=== PATIENT | male | born 2000 | race African-American/Black ===

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

== ENCOUNTER 2019-03-17 15:57 | Emergency (ER) | payer OTHER ==
[2019-03-17 16:16] VITALS: BMI 39.1
--- NOTE | 2019-03-17 16:22 | PDOC ---
Rapid Medical Evaluation Chief Complaint: Headache Time Seen by Provider: 03/17/19 16:21 Medical Evaluation: Allergies Allergy/AdvReac Type Severity Reaction Status Date / Time No Known Allergies Allergy Verified 11/22/18 02:47 Vital Signs Temp Pulse Resp BP Pulse Ox 98.2 F 74 20 124/67 100 03/17/19 16:12 03/17/19 16:12 03/17/19 16:12 03/17/19 16:12 03/17/19 16:12 03/17/19 16:21 Pt c/o: frontal throbbing pressure to forehead x 5 days, + photosensitivity and dizziness, took motrin with no relief pt on brief exam: vss, perrl, Pt ordered for: head ct, pt to proceed to the ED Discharge Disposition - Diagnosis Headache - Discharge Dispostion Condition at time of disposition: Stable - Referrals Referrals: Karena Gordon MD [Primary Care Provider] - - Patient Instructions - Post Discharge Activity
[2019-03-17] MEDS ORDERED: SODIUM CHLORIDE 1,000 ML IV STA (16:27)
[2019-03-17] MEDS ORDERED: METOCLOPRAMIDE HCL INJECTION 10 MG/2 ML VIAL IVPB ONE (16:27)
[2019-03-17] MEDS ORDERED: ACETAMINOPHEN 1000 MG/100 ML VIAL (NON FORMULARY) IVPB ONE (16:27)
--- NOTE | 2019-03-17 16:34 | PDOC ---
History of Present Illness - General History Source: Patient Exam Limitations: No Limitations <[email or web address] [email or web address] - Last Filed: 03/17/19 18:12> <Kunal Webber - Last Filed: 03/18/19 02:27> - General Chief Complaint: Headache Stated Complaint: HEADACHE Time Seen by Provider: 03/17/19 16:21 Past History - Travel Traveled outside of the country in the last 30 days: No Close contact w/someone who was outside of country & ill: No - Past Medical History COPD: No - Immunization History Immunization Up to Date: Yes - Psycho Social/Smoking Cessation Hx Smoking History: Never smoked Have you smoked in the past 12 months: No Information on smoking cessation initiated: No Hx Alcohol Use: No Drug/Substance Use Hx: No <YoanaJaniceKristen - Last Filed: 03/17/19 18:12> <Kunal Webber - Last Filed: 03/18/19 02:27> - Past Medical History Allergies/Adverse Reactions: Allergies Allergy/AdvReac Type Severity Reaction Status Date / Time No Known Allergies Allergy Verified 11/22/18 02:47 Home Medications: Ambulatory Orders Ibuprofen 600 mg PO Q6H #30 tablet 03/17/19 Review of Systems - Review of Systems Able to Perform ROS?: Yes Comments:: 03/17/19 18:12 CONSTITUTIONAL: Absent: fever, chills, diaphoresis, generalized weakness, malaise, loss of appetite HEENT: Absent: rhinorrhea, nasal congestion, throat pain, throat swelling, difficulty swallowing, mouth swelling, ear pain, eye pain, visual Changes CARDIOVASCULAR: Absent: chest pain, loss of consciousness, palpitations, irregular heart rate, peripheral edema RESPIRATORY: Absent: cough, shortness of breath, dyspnea with exertion, orthopnea, wheezing, stridor, hemoptysis GASTROINTESTINAL: Absent: abdominal pain, abdominal distension, nausea, vomiting, diarrhea, constipation, melena, hematochezia GENITOURINARY: Absent: dysuria, frequency, urgency, hesitancy, hematuria, flank pain, genital pain MUSCULOSKELETAL: Absent: myalgia, arthralgia, joint swelling SKIN: Absent: rash, itching, pallor NEUROLOGIC: Present: Headache Absent:focal weakness or paresthesias, dizziness, unsteady gait, seizure, mental status changes, bladder or bowel incontinence PSYCHIATRIC: Absent: anxiety, depression, suicidal or homicidal ideation, hallucinations. Is the patient limited E[place]an proficient: No <YoanaKristen - Last Filed: 03/17/19 18:12> *Physical Exam - Vital Signs Last Vital Signs Temp Pulse Resp BP Pulse Ox 98.2 F 74 20 124/67 100 03/17/19 16:12 03/17/19 16:12 03/17/19 16:12 03/17/19 16:12 03/17/19 16:12 - Physical Exam 03/17/19 18:12 GENERAL: Well developed, well nourished. Awake and alert. No acute distress. HEENT: Normocephalic, atraumatic. PERRLA, EOMI. No conjunctival pallor. Sclera are non- icteric. Moist mucous membranes. Oropharynx is clear. NECK: Supple. Full ROM. CARDIOVASCULAR: Regular rate and rhythm. No murmurs, rubs, or gallops. Distal pulses are 2+ and symmetric. PULMONARY: No evidence of respiratory distress. Lungs clear to auscultation bilaterally. No wheezing, rales or rhonchi. MUSCULOSKELETAL Normal range of motion at all joints. No bony deformities or tenderness. SKIN: Warm and dry. Normal capillary refill. No rashes. No jaundice. NEUROLOGICAL: Alert, awake, appropriate. Cranial nerves 2-12 intact. No deficits to light touch and temperature in face, upper extremities and lower extremities. No motor deficits in the in face, upper extremities and lower extremities. Normoreflexic in the upper and lower extremities. Normal speech. Toes are down- going bilaterally. Gait is normal without ataxia. PSYCHIATRIC: Cooperative. Good eye contact. Appropriate mood and affect. <Kristen Lees - Last Filed: 03/17/19 18:12> - Vital Signs Last Vital Signs Temp Pulse Resp BP Pulse Ox 98.0 F 82 19 119/68 100 03/17/19 17:58 03/17/19 17:58 03/17/19 17:58 03/17/19 17:58 03/17/19 17:58 <Kunal Webber - Last Filed: 03/18/19 02:27> ED Treatment Course - LABORATORY CBC & Chemistry Diagram: 03/17/19 16:30 03/17/19 16:30 <Sciliano,Kristen - Last Filed: 03/17/19 18:12> - LABORATORY CBC & Chemistry Diagram: 03/17/19 16:30 03/17/19 16:30 - ADDITIONAL ORDERS Additional order review: Laboratory Results 03/17/19 16:30 Sodium 143 Potassium 3.9 Chloride 110 H Carbon Dioxide 30 Anion Gap 2 L BUN 4.8 L Creatinine 0.9 Est GFR (CKD-EPI)AfAm 143.00 Est GFR (CKD-EPI)NonAf 123.38 Random Glucose 97 Calcium 8.8 Total Bilirubin 0.3 AST 25 ALT 40 Alkaline Phosphatase 127 H Total Protein 7.8 Albumin 4.0 03/17/19 16:30 RBC 5.53 MCV 77.3 L MCHC 32.1 RDW 15.1 MPV 7.1 L Neutrophils % 54.4 D Lymphocytes % 32.2 D Monocytes % 8.0 Eosinophils % 4.4 Basophils % 1.0 - Medications Given in the ED: ED Medications Discontinued Medications Generic Name Dose Route Start Last Admin Trade Name Koltonq PRN Reason Stop Dose Admin Acetaminophen 1,000 mg 03/17/19 16:27 03/17/19 16:48 Ofirmev Injection - IVPB 03/17/19 16:28 1,000 mg ONCE ONE Administration Diphenhydramine HCl 12.5 mg 03/17/19 16:27 03/17/19 16:48 Benadryl Injection - IVPB 03/17/19 16:28 12.5 mg ONCE ONE Administration Sodium Chloride 1,000 mls @ 1,000 mls/hr 03/17/19 16:27 03/17/19 16:48 Normal Saline - IV 03/17/19 17:26 1,000 mls/hr ASDIR STA Administration Metoclopramide HCl 10 mg 03/17/19 16:27 03/17/19 16:48 Reglan Injection - IVPB 03/17/19 16:28 10 mg ONCE ONE Administration <Kunal Webber - Last Filed: 03/18/19 02:27> Medical Decision Making - Medical Decision Making 03/17/19 18:13 Patient is a 18-year-old male no past medical history who presents with 5 days of headache. He states that the pain is mostly in the front of his head bilaterally. He notes that the light and loud sounds make his pain worse. He also admits to some nausea without vomiting. He states he has never had a headache before. He has tried taking ibuprofen at home with minimal relief of his symptoms. Given the length of the headache and that home medication was not working he presented to the ER for evaluation. Denies fevers, chills, neck pain, lightheadedness, dizziness, weakness, gait changes. A/P: Headache On exam patient is neurologically intact with no focal deficits. Given this is a new onset headache, will proceed with head CT as ordered by E Basic labs were ordered, no abnormalities. Migraine cocktail given with relief of symptoms. Head CT as read by imaging on-call without acute intracranial pathology. On reevaluation headache has subsided. Patient feels much better. We will discharge home with primary care follow-up. I discussed the physical exam findings, ancillary test results and final diagnoses with the patient. I answered all of the patient's questions. The patient was satisfied with the care received and felt comfortable with the discharge plan and treatment plan. The Patient agrees to follow up with the primary care physician/specialist within 24-72 hours. Return precautions were given. <Kristen Lees - Last Filed: 03/17/19 18:12> - Medical Decision Making The patient was seen and evaluated in conjunction with KRISTINA Lees under my direct supervision, ancillary studies were reviewed. I independently evaluated the patient and I agree with the plan as outlined by KRISTINA Lees . <Kunal Webber - Last Filed: 03/18/19 02:27> Discharge - Discharge Information Problems reviewed: Yes - Admission No <Kristen Lees - Last Filed: 03/17/19 18:12> <Kunal Webber - Last Filed: 03/18/19 02:27> - Discharge Information Clinical Impression/Diagnosis: Headache Qualifiers: Headache type: unspecified Headache chronicity pattern: acute headache Intractability: not intractable Qualified Code(s): R51 - Headache Condition: Stable Disposition: HOME - Additional Discharge Information Prescriptions: Ibuprofen 600 mg PO Q6H #30 tablet - Follow up/Referral Referrals: Karena Gordon MD [Primary Care Provider] - - Patient Discharge Instructions Patient Printed Discharge Instructions: DI for Migraine Additional Instructions: You were evaluated for your headache today. Your head CT was normal. It is most likely a migraine. Please take Motrin 600 mg every 6 hours for the next 24 hours to prevent the headache from coming back. Please drink plenty of fluids. Follow-up with your primary care doctor this week for further evaluation. Return to the ER for worsening headache, lightheadedness, dizziness or if you have any changes in your symptoms. - Post Discharge Activity Work/Back to School Note: Back to Work
[2019-03-17] MEDS ORDERED: ACETAMINOPHEN INJECTION 100 ML IVPB ONE (16:41)
[2019-03-17] MEDS ORDERED: METOCLOPRAMIDE HCL INJECTION 10 MG/2 ML VIAL ONE (16:41)
[2019-03-17 16:48] LABS: EOS % 4.4 % (0-4.5); HEMATOCRIT 42.7 % (35.4-49); HEMOGLOBIN 13.7 GM/dL (11.7-16.9); LYMPH % 32.2 % (8-40); MCH 24.9 pg (25.7-33.7); MCHC 32.1 g/dl (32.0-35.9); MEAN CELL VOLUME 77.3 fl (80-96); MEAN PLT VOLUME 7.1 fl (7.5-11.1); NEUT % 54.4 % (42.8-82.8); PLATELET COUNT 335 K/MM3 (134-434); RBC 5.53 M/mm3 (4.00-5.60); RDW 15.1 % (11.9-15.9); WHITE BLOOD COUNT 6.6 K/mm3 (4.0-10.0)
[2019-03-17 17:22] LABS: BILIRUBIN,TOTAL 0.3 mg/dL (0.2-1); BLOOD UREA NITROGEN 4.8 mg/dL (7-18); CALCIUM 8.8 mg/dL (8.5-10.1); CREATININE 0.9 mg/dL (0.55-1.3); POTASSIUM 3.9 mmol/L (3.5-5.1); TOT PROT 7.8 g/dl (6.4-8.2)
[2019-03-17 17:59] VITALS: BP 119/68; PULSE 82; TEMP 98
== END 2019-03-17 18:37 | disposition home or self-care (01) ==
LOC: JER 15:57
PROC: 3E033NZ Introduction of Analgesics, Hypnotics, Sedatives into Peripheral Vein, Percutaneous Approach (ICD-10-PCS; principal; 2019-03-17)
PROC: 3E033GC Introduction of Other Therapeutic Substance into Peripheral Vein, Percutaneous Approach (ICD-10-PCS; 2019-03-17)
DX: R51 Headache (principal)
CPT/HCPCS: 36415; 70450-TC; 80053; 85025; 99282-25; J0131; J7030